=== PATIENT | female | born 1980 | race African-American/Black ===

== ENCOUNTER 2017-10-16 21:32 | Emergency (ER) | payer MEDICAID ==
[~2017-10-16] VITALS: Ht 162.6 cm; Wt 59.0 kg
[~2017-10-16 21:32] MED LIST: PREN-57; PREN-88 PO
[2017-10-16 21:45] VITALS: BP 115/74
== END 2017-10-17 03:04 | disposition left against medical advice (07) ==
LOC: ER 21:54
DX: Z53.21 Procedure and treatment not carried out due to patient leaving prior to being seen by health care provider (principal)

== ENCOUNTER 2019-07-09 21:03 | Emergency (ER) | payer MEDICAID ==
[~2019-07-09] VITALS: Ht 165.1 cm; Wt 64.0 kg
[2019-07-10 02:31] LABS: BASOPHILS % 0.7 % (0.0-2.0); HEMATOCRIT. 34.1 % (36.0-48.0); HEMOGLOBIN. 11.3 g/dL (12.0-16.0); LYMPHOCYTES % 34.8 % (20.0-50.0); MEAN CORPUSCULAR VOLUME 90.4 fL (81.0-99.0); MEAN PLATELET VOLUME 9.7 fl (7.4-10.4); MONOCYTES % 7.6 % (2.0-8.0); NEUTROPHILS % 55.9 % (40.0-76.0); PLATELET 152 x1000/uL (130-400); RED BLOOD CELL COUNT 3.78 mill/uL (4.2-5.4); RED CELL DISTRIBUTION WIDTH 12.5 % (11.6-14.6)
[2019-07-10 02:44] LABS: CHLORIDE 109 mEq/L (98-107)
[2019-07-10 03:08] LABS: B-HCG QUANTITATIVE 19247 mIU/mL (<3)
[2019-07-10] MEDS ORDERED: SODIUM CHLORIDE 0.9% 1,000 ML IV ONE (04:00)
[2019-07-10 04:57] VITALS: BP 102/60
== END 2019-07-10 04:57 | disposition home or self-care (01) ==
LOC: ER 21:03
DX: O20.0 Threatened abortion (principal); Z3A.01 Less than 8 weeks gestation of pregnancy; O09.521 Supervision of elderly multigravida, first trimester
CPT/HCPCS: 36415; 76801; 76817; 80053; 81025; 84702; 85025; 86850; 86900; 86901; 99284; Z7610

== ENCOUNTER 2019-07-20 22:05 | Emergency (ER) | payer MEDICAID ==
[~2019-07-20] VITALS: Ht 165.1 cm; Wt 64.0 kg
[2019-07-21 00:38] LABS: BASOPHILS % 0.8 % (0.0-2.0); EOSINOPHILS % 1.3 % (0.0-5.0); HEMATOCRIT. 32.2 % (36.0-48.0); LYMPHOCYTES % 31.3 % (20.0-50.0); MEAN CORPUSCULAR HEMOGLOBIN 30.7 pg (28.0-32.0); MEAN CORPUSCULAR VOLUME 90.2 fL (81.0-99.0); MEAN PLATELET VOLUME 9.2 fl (7.4-10.4); MONOCYTES % 7.3 % (2.0-8.0); NEUTROPHILS % 59.3 % (40.0-76.0); PLATELET 155 x1000/uL (130-400); RED BLOOD CELL COUNT 3.58 mill/uL (4.2-5.4); RED CELL DISTRIBUTION WIDTH 12.4 % (11.6-14.6)
[2019-07-21 00:47] LABS: CHLORIDE 108 mEq/L (98-107)
[2019-07-21 01:05] LABS: B-HCG QUANTITATIVE 12399 mIU/mL (<3)
[2019-07-21 04:35] VITALS: BP 95/65
== END 2019-07-21 04:40 | disposition home or self-care (01) ==
LOC: ER 22:05
DX: O20.0 Threatened abortion (principal); Z3A.08 8 weeks gestation of pregnancy; O09.521 Supervision of elderly multigravida, first trimester; O99.331 Smoking (tobacco) complicating pregnancy, first trimester; F17.210 Nicotine dependence, cigarettes, uncomplicated; Z3A.10 10 weeks gestation of pregnancy; Z71.6 Tobacco abuse counseling
CPT/HCPCS: 36415; 76801; 81025; 84702; 86850; 86900; 99284; 99406

== ENCOUNTER 2020-12-27 18:27 | Emergency (ER) | payer MEDICAID ==
[~2020-12-27] VITALS: Ht 165.1 cm; Wt 75.0 kg
[2020-12-27 20:17] LABS: CHLORIDE 107 mEq/L (98-107)
[2020-12-27 20:37] LABS: BASOPHILS % 1.2 % (0.0-2.0); HEMATOCRIT. 33.7 % (36.0-48.0); HEMOGLOBIN. 11.4 g/dL (12.0-16.0); LYMPHOCYTES % 33.5 % (20.0-50.0); MEAN CORPUSCULAR HEMOGLOBIN 30.7 pg (28.0-32.0); MEAN CORPUSCULAR VOLUME 90.9 fL (81.0-99.0); MEAN PLATELET VOLUME 8.7 fl (7.4-10.4); MONOCYTES % 6.7 % (2.0-8.0); NEUTROPHILS % 56.6 % (40.0-76.0); PLATELET 170 x1000/uL (130-400); RED BLOOD CELL COUNT 3.71 mill/uL (4.2-5.4); RED CELL DISTRIBUTION WIDTH 12.9 % (11.6-14.6)
[2020-12-27 20:41] LABS: B-HCG QUANTITATIVE 3468 mIU/mL (<3)
[2020-12-27 21:30] VITALS: BP 99/72
== END 2020-12-27 21:35 | disposition home or self-care (01) ==
LOC: ER 18:27
DX: O26.851 Spotting complicating pregnancy, first trimester (principal); Z3A.01 Less than 8 weeks gestation of pregnancy; O09.521 Supervision of elderly multigravida, first trimester
CPT/HCPCS: 36415; 76801; 80053; 81025; 84702; 85025; 86850; 86900; 93005; 99285

== ENCOUNTER 2020-12-29 18:17 | Emergency (ER) | payer MEDICAID ==
[~2020-12-29] VITALS: Ht 165.1 cm; Wt 66.0 kg
[2020-12-29 20:39] LABS: BASOPHILS % 0.2 % (0.0-2.0); EOSINOPHILS % 2.2 % (0.0-5.0); HEMATOCRIT. 33.8 % (36.0-48.0); HEMOGLOBIN. 11.4 g/dL (12.0-16.0); LYMPHOCYTES % 30.5 % (20.0-50.0); MEAN CORPUSCULAR HEMOGLOBIN 30.8 pg (28.0-32.0); MEAN CORPUSCULAR VOLUME 91.3 fL (81.0-99.0); MEAN PLATELET VOLUME 9.6 fl (7.4-10.4); MONOCYTES % 6.5 % (2.0-8.0); NEUTROPHILS % 60.6 % (40.0-76.0); PLATELET 172 x1000/uL (130-400); RED BLOOD CELL COUNT 3.71 mill/uL (4.2-5.4)
[2020-12-29 20:49] LABS: CHLORIDE 108 mEq/L (98-107)
[2020-12-29 21:04] LABS: COLOR URINE YELLOW (YELLOW); KETONES URINE NEGATIVE (NEGATIVE); LEUKOCYTE ESTERASE URINE NEGATIVE (NEGATIVE); NITRITE URINE NEGATIVE (NEGATIVE); OCCULT BLOOD URINE TRACE (NEGATIVE); PH URINE 7.5 (4.5-8.0); PROTEIN URINE NEGATIVE (NEGATIVE); SPECIFIC GRAVITY URINE 1.021 (1.005-1.030)
[2020-12-29 21:13] LABS: B-HCG QUANTITATIVE 4227 mIU/mL (<3)
[2020-12-29 21:16] LABS: CLARITY URINE CLOUDY (CLEAR)
[2020-12-29 22:10] VITALS: BP 111/75
== END 2020-12-29 22:39 | disposition home or self-care (01) ==
LOC: ER 18:17
DX: O20.0 Threatened abortion (principal); Z3A.01 Less than 8 weeks gestation of pregnancy; Z98.890 Other specified postprocedural states
CPT/HCPCS: 36415; 76801; 80053; 81003; 81025; 84702; 85025; 86850; 86900; 99284

== ENCOUNTER 2021-01-24 21:42 | Emergency (ER) | payer MEDICAID ==
[~2021-01-24] VITALS: Ht 165.1 cm; Wt 66.0 kg
[2021-01-25 00:09] LABS: CLARITY URINE CLEAR (CLEAR); COLOR URINE YELLOW (YELLOW); KETONES URINE NEGATIVE (NEGATIVE); LEUKOCYTE ESTERASE URINE NEGATIVE (NEGATIVE); NITRITE URINE NEGATIVE (NEGATIVE); OCCULT BLOOD URINE 2+ (NEGATIVE); PH URINE 6.5 (4.5-8.0); PROTEIN URINE NEGATIVE (NEGATIVE); SPECIFIC GRAVITY URINE 1.021 (1.005-1.030); UROBILINOGEN URINE 0.2 E.U./dL (0.2-1.0)
[2021-01-25 00:51] LABS: CHLORIDE 107 mEq/L (98-107)
[2021-01-25 00:59] LABS: BASOPHILS % 0.5 % (0.0-2.0); HEMATOCRIT. 34.1 % (36.0-48.0); LYMPHOCYTES % 34.2 % (20.0-50.0); MEAN CORPUSCULAR HEMOGLOBIN 31.4 pg (28.0-32.0); MEAN CORPUSCULAR VOLUME 89.5 fL (81.0-99.0); MEAN PLATELET VOLUME 9.7 fl (7.4-10.4); MONOCYTES % 6.3 % (2.0-8.0); PLATELET 187 x1000/uL (130-400); RED BLOOD CELL COUNT 3.81 mill/uL (4.2-5.4); RED CELL DISTRIBUTION WIDTH 12.9 % (11.6-14.6)
[2021-01-25 01:03] LABS: B-HCG QUANTITATIVE 541 mIU/mL (<3)
[2021-01-25] MEDS ORDERED: IBUP-2029 MT (02:34)
[2021-01-25 02:40] VITALS: BP 114/69
[2021-01-25] MEDS ORDERED: HYDROCODONE/ACETAMINOPHEN 5/325MG TABLET PO ONE (02:45)
== END 2021-01-25 02:55 | disposition home or self-care (01) ==
LOC: ER 21:42
DX: O03.9 Complete or unspecified spontaneous abortion without complication (principal)
CPT/HCPCS: 36415; 76801; 80053; 81003; 81025; 84702; 85025; 86850; 86900; 99284

== ENCOUNTER 2021-12-02 20:33 | Emergency (ER) | payer MEDICAID ==
[~2021-12-02] VITALS: Ht 162.6 cm; Wt 67.0 kg
[~2021-12-02 20:33] MED LIST changes: +IBUP-2029 MT
[2021-12-02 20:57] VITALS: BP 106/57
[2021-12-03] MEDS ORDERED: ACETAMINOPHEN 325MG TABLET PO PRN
[2021-12-03 00:39] LABS: CHLORIDE 110 mEq/L (98-107)
[2021-12-03 00:43] LABS: BASOPHILS % 0.5 % (0.0-2.0); EOSINOPHILS % 1.2 % (0.0-5.0); HEMATOCRIT. 36.8 % (36.0-48.0); HEMOGLOBIN. 12.4 g/dL (12.0-16.0); LYMPHOCYTES % 35.7 % (20.0-50.0); MEAN CORPUSCULAR HEMOGLOBIN 29.7 pg (28.0-32.0); MEAN CORPUSCULAR VOLUME 88.3 fL (81.0-99.0); MEAN PLATELET VOLUME 9.3 fl (7.4-10.4); NEUTROPHILS % 55.6 % (40.0-76.0); PLATELET 173 x1000/uL (130-400); RED BLOOD CELL COUNT 4.16 mill/uL (4.2-5.4); RED CELL DISTRIBUTION WIDTH 12.7 % (11.6-14.6)
[2021-12-03 01:02] LABS: B-HCG QUANTITATIVE 27077 mIU/mL (<3)
== END 2021-12-03 02:31 | disposition home or self-care (01) ==
LOC: ER 20:33
DX: O20.9 Hemorrhage in early pregnancy, unspecified (principal); Z3A.01 Less than 8 weeks gestation of pregnancy
CPT/HCPCS: 36415; 76801; 80053; 81025; 84702; 85025; 86850; 86900; 99284

== ENCOUNTER 2023-11-01 16:01 | Emergency (ER) | payer BC, MEDICAID ==
[~2023-11-01] VITALS: Ht 165.1 cm; Wt 68.0 kg
[2023-11-01 16:13] VITALS: O2SAT 97
[2023-11-01 16:39] LABS: CLARITY URINE CLOUDY (CLEAR); COLOR URINE YELLOW (YELLOW); GLUCOSE URINE NEGATIVE (NEGATIVE); KETONES URINE NEGATIVE (NEGATIVE); LEUKOCYTE ESTERASE URINE NEGATIVE (NEGATIVE); NITRITE URINE NEGATIVE (NEGATIVE); OCCULT BLOOD URINE 3+ (NEGATIVE); PH URINE 6.5 (4.5-8.0); PROTEIN URINE NEGATIVE (NEGATIVE); SPECIFIC GRAVITY URINE 1.024 (1.005-1.030)
[2023-11-01 16:51] LABS: BACTERIA URINE 2+; SQUAMOUS EPITHELIAL CELL URINE 1+ /lpf (RARE/1+); WBC URINE 0-2 /hpf (0-2)
[2023-11-01 16:52] LABS: YEAST URINE NONE SEEN
[2023-11-01] MEDS ORDERED: CEPH500C2 MT (17:31)
[2023-11-01] MEDS ORDERED: CEPH500T MT (17:32)
[2023-11-01 17:36] LABS: BASOPHILS % 1.1 % (0.0-2.0); EOSINOPHILS % 0.8 % (0.0-5.0); HEMATOCRIT. 35.6 % (36.0-48.0); HEMOGLOBIN. 11.9 g/dL (12.0-16.0); LYMPHOCYTES % 23.1 % (20.0-50.0); MEAN CORPUSCULAR HEMOGLOBIN 29.8 pg (28.0-32.0); MEAN CORPUSCULAR HGB CONC 33.5 g/dL (31.0-37.0); MEAN CORPUSCULAR VOLUME 88.9 fL (81.0-99.0); MEAN PLATELET VOLUME 9.5 fl (7.4-10.4); MONOCYTES % 8.5 % (2.0-8.0); NEUTROPHILS % 66.5 % (40.0-76.0); PLATELET 178 x1000/uL (130-400); RED CELL DISTRIBUTION WIDTH 12.6 % (11.6-14.6); WHITE BLOOD COUNT 9.4 x1000/uL (4.5-11.0)
[2023-11-01 18:06] LABS: ALANINE AMINOTRANSFERASE < 7 IU/L (10-49); ALBUMIN 4.3 g/dL (3.2-4.8); ASPARTATE AMINOTRANSFERASE 14 IU/L (<34); B-HCG QUANTITATIVE 37391 mIU/mL (<3); BILIRUBIN TOTAL 0.3 mg/dL (0.1-1.0); CALCIUM 9.1 mg/dL (8.7-10.4); CARBON DIOXIDE 26 mEq/L (21-32); CHLORIDE 107 mEq/L (98-107); CREATININE 0.8 mg/dL (0.6-1.0); GLUCOSE 89 mg/dL (70-105); POTASSIUM 3.7 mEq/L (3.5-5.1); PROTEIN TOTAL 7.1 g/dL (6.0-8.3); SODIUM 137 mEq/L (136-145); UREA NITROGEN BLOOD 13 mg/dL (9-23)
[2023-11-01 18:54] VITALS: BP 118/64; PULSE 80; RESP 19; TEMP 98.3
== END 2023-11-01 18:57 | disposition home or self-care (01) ==
LOC: ER 16:01
DX: O46.91 Antepartum hemorrhage, unspecified, first trimester (principal); Z3A.01 Less than 8 weeks gestation of pregnancy; Z98.890 Other specified postprocedural states
CPT/HCPCS: 36415; 76801; 80053; 81003; 81025; 84702; 85025; 99284

== ENCOUNTER 2023-11-05 14:34 | Emergency (ER) | payer BC ==
[~2023-11-05] VITALS: Ht 165.1 cm; Wt 65.8 kg
[~2023-11-05 14:34] MED LIST changes: +CEPH500T MT
[2023-11-05 14:49] VITALS: O2SAT 99
[2023-11-05 15:57] LABS: BASOPHILS % 0.4 % (0.0-2.0); EOSINOPHILS % 0.6 % (0.0-5.0); HEMATOCRIT. 35.3 % (36.0-48.0); HEMOGLOBIN. 11.7 g/dL (12.0-16.0); LYMPHOCYTES % 15.7 % (20.0-50.0); MEAN CORPUSCULAR HEMOGLOBIN 29.6 pg (28.0-32.0); MEAN CORPUSCULAR HGB CONC 33.2 g/dL (31.0-37.0); MEAN CORPUSCULAR VOLUME 89.2 fL (81.0-99.0); MEAN PLATELET VOLUME 9.6 fl (7.4-10.4); MONOCYTES % 5.2 % (2.0-8.0); NEUTROPHILS % 78.1 % (40.0-76.0); PLATELET 189 x1000/uL (130-400); RED BLOOD CELL COUNT 3.96 mill/uL (4.2-5.4); RED CELL DISTRIBUTION WIDTH 12.5 % (11.6-14.6); WHITE BLOOD COUNT 12.4 x1000/uL (4.5-11.0)
[2023-11-05 16:14] LABS: ALANINE AMINOTRANSFERASE < 7 IU/L (10-49); ALBUMIN 4.3 g/dL (3.2-4.8); ASPARTATE AMINOTRANSFERASE 15 IU/L (<34); BILIRUBIN TOTAL 0.2 mg/dL (0.1-1.0); CARBON DIOXIDE 26 mEq/L (21-32); CHLORIDE 107 mEq/L (98-107); CREATININE 0.8 mg/dL (0.6-1.0); GLUCOSE 115 mg/dL (70-105); POTASSIUM 3.8 mEq/L (3.5-5.1); SODIUM 139 mEq/L (136-145); UREA NITROGEN BLOOD 10 mg/dL (9-23)
[2023-11-05 16:24] LABS: CLARITY URINE CLOUDY (CLEAR); COLOR URINE YELLOW (YELLOW); GLUCOSE URINE NEGATIVE (NEGATIVE); KETONES URINE NEGATIVE (NEGATIVE); LEUKOCYTE ESTERASE URINE NEGATIVE (NEGATIVE); NITRITE URINE NEGATIVE (NEGATIVE); OCCULT BLOOD URINE 3+ (NEGATIVE); PROTEIN URINE 3+ (NEGATIVE); SPECIFIC GRAVITY URINE 1.035 (1.005-1.030)
[2023-11-05 16:27] LABS: BACTERIA URINE NONE SEEN; RBC URINE 50-100 /hpf (0-2); SQUAMOUS EPITHELIAL CELL URINE 1+ /lpf (RARE/1+); WBC URINE 0-2 /hpf (0-2)
[2023-11-05] MEDS: SODIUM CHLORIDE 0.9% 1,000 ML IV ONE (16:59)
[2023-11-05] MEDS ORDERED: HYDR-4001 MT (18:34)
[2023-11-05] MEDS: HYDROCODONE/ACETAMINOPHEN 5/325MG TABLET PO ONE (18:37)
[2023-11-05 19:12] VITALS: BP 120/73; PULSE 70; RESP 16; TEMP 97.6
== END 2023-11-05 19:33 | disposition home or self-care (01) ==
LOC: ER 14:34
DX: O03.9 Complete or unspecified spontaneous abortion without complication (principal); Z98.890 Other specified postprocedural states
CPT/HCPCS: 99284; 96360; 76801; 80053; 81003; 81025; 84702; 85025; 86850; 86900; 86901; 36415; 76817; J7030

== ENCOUNTER 2025-02-02 19:43 | Emergency (ER) | payer MEDICAID ==
[~2025-02-02] VITALS: Ht 162.6 cm; Wt 70.0 kg
[~2025-02-02 19:43] MED LIST changes: +HYDR-4001 MT
[2025-02-02 19:46] VITALS: PULSE 91; RESP 18; O2SAT 100
[2025-02-02 19:49] VITALS: BP 117/81; TEMP 36.6; O2SAT 100
[2025-02-02 20:10] LABS: CLARITY URINE CLOUDY (CLEAR); COLOR URINE YELLOW (YELLOW); GLUCOSE URINE NEGATIVE (NEGATIVE); KETONES URINE NEGATIVE (NEGATIVE); LEUKOCYTE ESTERASE URINE 1+ (NEGATIVE); NITRITE URINE NEGATIVE (NEGATIVE); OCCULT BLOOD URINE NEGATIVE (NEGATIVE); PROTEIN URINE NEGATIVE (NEGATIVE); SPECIFIC GRAVITY URINE 1.026 (1.005-1.030)
[2025-02-02 20:20] LABS: BACTERIA URINE 1+; RBC URINE 0-2 /hpf (0-2); SQUAMOUS EPITHELIAL CELL URINE 2+ /lpf (RARE/1+)
[2025-02-02] MEDS ORDERED: SULF1TAB48 MT (22:27)
== END 2025-02-02 22:47 | disposition home or self-care (01) ==
LOC: ER 19:43
DX: N39.0 Urinary tract infection, site not specified (principal); Z79.899 Other long term (current) drug therapy; Z98.890 Other specified postprocedural states
CPT/HCPCS: 81003; 81025; 99283